=== PATIENT | female | born 1985 | race Caucasian/White ===

== ENCOUNTER 2019-10-16 07:26 | Day surgery (SDC) | payer MEDICARE, MEDICAID ==
[~2019-10-16] VITALS: Ht 167.6 cm; Wt 80.0 kg
[2019-10-16] MEDS ORDERED: normal saline 1000ml 1,000 ML IV PRN (07:45)
[2019-10-16] MEDS ORDERED: albumin 25% 100mL bottle x 1 IV PRN (07:45)
[2019-10-16] MEDS ORDERED: MAGN500C16 PO (07:56)
[2019-10-16] MEDS ORDERED: SPIR25TA5 PO (07:56)
[2019-10-16] MEDS ORDERED: ESCI20TA45 PO (07:56)
[2019-10-16] MEDS ORDERED: CYAN10006 IM (07:56)
[2019-10-16] MEDS ORDERED: ERGO500041 PO (07:56)
[2019-10-16] MEDS ORDERED: ONDA4TAB12 PO (07:56)
[2019-10-16] MEDS ORDERED: CALC1TAB97 PO (07:56)
[2019-10-16] MEDS ORDERED: POTA10TA19 PO (07:56)
[2019-10-16] MEDS ORDERED: FERR325T28 PO (07:56)
[2019-10-16] MEDS ORDERED: ASCO500W7 (07:56)
[2019-10-16] MEDS ORDERED: OMEP40CA13 PO (07:56)
[2019-10-16 07:57] VITALS: BP 114/76
[2019-10-16 08:30] VITALS: BP 107/67
[2019-10-16 08:50] VITALS: BP 96/53
[2019-10-16 09:05] VITALS: BP 98/69
[2019-10-16 09:15] VITALS: BP 114/76
[2019-10-16 09:40] LABS: ALBUMIN,BODY FLUID 2.8 G/DL; GLUCOSE,BODY FLUID 89 MG/DL; LDH,BODY FLUID 109 U/L; TOTAL PROTEIN,BODY FLUID 3.9 G/DL
[2019-10-16 10:55] LABS: BFAPPEAR CLEAR
[2019-10-16 10:56] LABS: BF RBC COUNT 0 /CU MM; BF WBC COUNT 43 /CU MM (0-1000); BFCOLOR YELLOW; BFVOLUME 59 ML
[2019-10-16 13:24] LABS: EOSINOPHILS,BODY FLUID 1 %; LYMPHOCYTES,BODY FLUID 13 %; MONOCYTES,BODY FLUID 84 %; NEUTROPHILS,BODY FLUID 2 %
[2019-10-16 13:25] LABS: BF MESOTHELIAL CELLS MANY
== END 2019-10-16 09:20 | disposition home or self-care (01) ==
LOC: SSTAY O 07:26
PROVIDERS: ATTEND Radiology Vascular & Interventional Radiology
DX: R18.8 Other ascites (principal); F32.9 Major depressive disorder, single episode, unspecified; D50.9 Iron deficiency anemia, unspecified; K21.9 Gastro-esophageal reflux disease without esophagitis; K50.90 Crohn's disease, unspecified, without complications; Z90.49 Acquired absence of other specified parts of digestive tract; Z98.890 Other specified postprocedural states; Z79.899 Other long term (current) drug therapy
CPT/HCPCS: 49083; 82042; 82945; 83615; 84157; 87070; 89051